=== PATIENT | male | born 1960 | race Caucasian/White ===

== ENCOUNTER 2016-11-24 00:33 | Emergency (ER) | payer BC ==
--- NOTE | 2016-11-24 00:47 | EDM.PDOC ---
ED HPI GENERAL MEDICAL PROBLEM - General Chief Complaint: Upper Extremity Injury/Pain Stated Complaint: ELBOW PAIN Time Seen by Provider: 11/24/16 00:45 Source of Information: Reports: Patient History Limitations: Reports: No Limitations - History of Present Illness INITIAL COMMENTS - FREE TEXT/NARRATIVE: HISTORY AND PHYSICAL: History of present illness: [56-year-old male complaining of right elbow pain. Patient just drove 6000 miles in 2 weeks and his right elbow got very sore. He has an abrasion on the tip of his elbow from resting on center console. It became progressively sore and an inflamed and now red and swollen. He has a prior history of bursitis. Patient denies fevers chills sweats or shaking chills. Except for local pain he feels well. The area right on the point of the elbow is red and slightly warm so his ex- told him to come to the emergency department concerned that he might have a staph infection. Review of systems: As per history of present illness and below otherwise all systems reviewed and negative. Past medical history: As per history of present illness and as reviewed below otherwise noncontributory. Surgical history: As per history of present illness and as reviewed below otherwise noncontributory. Social history: No reported history of drug or alcohol abuse. Family history: As per history of present illness and as reviewed below otherwise noncontributory. Physical exam: HEENT: Atraumatic, normocephalic, pupils reactive, negative for conjunctival pallor or scleral icterus, mucous membranes moist, throat clear, neck supple, nontender, trachea midline. Lungs: Clear to auscultation, breath sounds equal bilaterally, chest nontender. Heart: S1S2, regular, negative for clicks, rubs, or JVD. Abdomen: Soft, nondistended, nontender. Negative for masses or hepatosplenomegaly. Negative for costovertebral tenderness. Pelvis: Stable nontender. Genitourinary: Deferred. Rectal: Deferred. Extremities: Atraumatic, negative for cords or calf pain. Neurovascular unremarkable. Right elbow with erythema warmth soft tissue swelling and fluctuance consistent with bursitis over the point of patient's olecranon. 5 mm abrasion present illness. Exam consistent with fluid in the bursa. No pain with range of motion of the elbow. Soft compartments neurovascularly intact distal upper extremity Neuro: Awake, alert, oriented. Cranial nerves II through XII unremarkable. Cerebellum unremarkable. Motor and sensory unremarkable throughout. Exam nonfocal. Diagnostics: [] Therapeutics: [] Impression: [] Plan: [Signs and symptoms consistent with traumatic bursitis with small abrasion. Low suspicion of bacterial infection however discussed with patient possibly does exist and we will cover with clindamycin to address this. Patient aware to use NSAIDs and pad elbow being careful not to irritate it further. He will follow- up with his primary care doctor and is aware to return immediately for new severe or worsening symptoms Definitive disposition and diagnosis as appropriate pending reevaluation and review of above. Right Elbow Pain Score (Numeric/FACES): 4 - Related Data Allergies Allergy/AdvReac Type Severity Reaction Status Date / Time Penicillins Allergy Swelling Verified 11/24/16 00:42 Home Meds: Home Meds Clindamycin HCl 300 mg PO QID #48 capsule 11/24/16 [Rx] Review of Systems - Review of Systems Review Of Systems: See Below (History of present illness) ED EXAM, GENERAL - Physical Exam Exam: See Below (History of present illness) Course - Vital Signs Last Recorded V/S: Last Vital Signs Temp 36.4 C 11/24/16 02:02 Pulse 72 11/24/16 02:02 Resp 16 11/24/16 02:02 BP 124/92 H 11/24/16 02:02 Pulse Ox 97 11/24/16 02:02 - Orders/Labs/Meds Meds: Medications Discontinued Medications Generic Name Dose Route Start Last Admin Trade Name Newtonq PRN Reason Stop Dose Admin Clindamycin HCl 300 mg 11/24/16 01:39 11/24/16 01:43 Cleocin PO 11/24/16 01:40 300 mg ONETIME ONE Administration Ibuprofen 800 mg 11/24/16 01:39 11/24/16 01:44 Motrin PO 11/24/16 01:40 800 mg ONETIME ONE Administration Departure - Departure Time of Disposition: 01:47 Disposition: Home, Self-Care 01 Condition: good Clinical Impression: Olecranon bursitis of right elbow, Abrasion of right elbow - Discharge Information Prescriptions: Clindamycin HCl 300 mg PO QID #48 capsule Instructions: Elbow Bursitis, [id number] Referrals: PCP,None [Primary Care Provider] - Forms: ED Department Discharge Additional Instructions: It appears that your [address] within 2 weeks has resulted in U sustaining a traumatic bursitis of your right elbow. The bursa is a fluid sac over your joint. With prolonged pressure or irritation in this case with your elbow continuing resting on something for an extended period, that fluid second become inflamed. This is called bursitis. You also have a small abrasion in that area and you mentioned your tetanus is up-to-date. Verify this tetanus current C with your Dr. in follow-up for repeat tetanus if necessary. Because the signs of inflammation of the same as the signs of infection, redness swelling pain and warmth, it is impossible to distinguish definitively between inflammatory process and infectious process. Since her skin is red with signs of inflammation we are going to cover U for the possibility of skin infection or cellulitis, though this appears to be less likely. Take 800 mg of ibuprofen every 6 hours and also take Tylenol if necessary for soreness. Pad your elbow whenever he rested on the surface. Finish anaphylaxis prescribed
[2016-11-24] MEDS ORDERED: Clindamycin HCl 150 MG Cap PO ONE (01:39)
[2016-11-24] MEDS ORDERED: Ibuprofen 800 MG Tab PO ONE (01:39)
[2016-11-24 02:06] VITALS: BP 124/92
== END 2016-11-24 02:02 | disposition home or self-care (01) ==
LOC: MW.ED 00:33
DX: M70.21 Olecranon bursitis, right elbow (principal); S50.311A Abrasion of right elbow, initial encounter; Z88.0 Allergy status to penicillin
CPT/HCPCS: 99283; A9270